=== PATIENT | male | born 1945 | race Caucasian/White ===

== ENCOUNTER → 2024-12-09 | Outpatient (CLI) | payer MEDICARE, SELFPAY ==
--- NOTE | 2024-12-09 18:50 | CT_ITS ---
PROCEDURE: ABDOMEN/PELVIS WITHOUT CONT 12/09/2024 REASON FOR EXAM: KIDNEY STONE TECHNIQUE: ABDOMEN/PELVIS WITHOUT CONT Noncontrast technique limits evaluation of the abdominal and pelvic viscera. Coronal and Sagittal reconstruction series were provided. One or more dose reduction techniques were used (e.g., Automated exposure control, adjustment of the mA and/or kV according to patient size, use of iterative reconstruction technique). RADIATION DOSE SUMMARY: CTDlvol: 21.05 mGy DLP: 1183.62 mGycm COMPARISON: None FINDINGS: Lung bases: Mild linear atelectasis and/or scarring at the lung bases. Coronary artery calcification. Liver: Diffuse fatty infiltration. Gallbladder: No evidence of gallstones. Spleen: Normal size. Pancreas: Normal size. No surrounding inflammation. Adrenals: Unremarkable Kidneys: Mild degree of bilateral nonspecific perinephric stranding. No renal calculus is seen. No evidence of hydronephrosis. Bladder: The urinary bladder is distended. Small umbilical hernia containing fat. The neck of the hernia measures mm. Bowel: Colonic diverticulosis without diverticulitis. Appendix: Unremarkable Lymph nodes: Unremarkable. Vasculature: Mild diffuse atherosclerotic calcifications are noted. Peritoneum / Retroperitoneum: Unremarkable Bones: Degenerative changes of the spine. CT/Abdomen/Pelvis without Cont IMPRESSION: No evidence of intrarenal calculi. No evidence of hydronephrosis. Fatty infiltration of the liver. Reading Location: [id number]
== END | disposition home or self-care (01) ==
PROVIDERS: PCP Family Medicine; Visit Provider Urology
DX: N40.1 Benign prostatic hyperplasia with lower urinary tract symptoms (principal)
CPT/HCPCS: 74176

== ENCOUNTER 2025-01-01 13:43 | Observation (INO) | payer MEDICARE, SELFPAY ==
[2025-01-01] VITALS (16 sets, daily range): BP systolic 135–156; BP diastolic 74–96; PULSE 88–107; RESP 16–18; TEMP 36.1–37.1; O2SAT 93–99; BMI 31.5
--- NOTE | 2025-01-01 10:19 | EKG12_ITS ---
Test Reason : PREOP Blood Pressure : */* mmHG Vent. Rate : 103 BPM Atrial Rate : 103 BPM P-R Int : 128 ms QRS Dur : 94 ms QT Int : 366 ms P-R-T Axes : 51 -58 52 degrees QTcB Int : 479 ms Sinus tachycardia Left axis deviation Nonspecific ST abnormality Abnormal ECG No previous ECGs available Confirmed by Sedrick Roach ([id number]), photography editor TOSHA WADSWORTH ([id number]) on 01/02/2025 8:32:31 AM Referred By: Ankit Reyes Confirmed By: Sedrick Roach
[2025-01-01] MEDS: Lactated Ringers 1,000 ML 15 ML IV (10:40)
--- NOTE | 2025-01-01 12:01 | PCM.PRE.AN2 ---
ASA Classification* ASA Classification ASA Classification: 3 Assessment & Plan Anesthesia* Anesthesia Assessment Anesthesia Assessment: Discussed sedation and/or anesthesia options, risks, benefits, and alternatives with patient/parents/legal guardian/POA. Questions invited. The patient/parents/legal guardian/POA seems to understand and agrees to proceed with anesthesia plan. Reviewed the physical assessment, medical history, allergy history and patient home medications list prior to surgery/procedure/anesthetic and documented any changes. Performed airway and anesthesia risk assessments. 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 When Was Last Pacemaker Check QUESTION #4 FULL TEXT: You/Your Family Experience fever (hyperthermia) with Anesthesia Last Oral Intake Last Oral intake: Last Oral Intake NPO since 00:00 01/01/25 10:27 Meds taken in AM with sips of water? 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 Female No 12/19/24 15:30 HX of Motion Sickness No 12/19/24 15:30 HX of N/V After Surgery No 12/19/24 15:30 Non-Smoker Yes 12/19/24 15:30 Duration of Surgery greater Yes 12/19/24 15:30 than 60 minutes Number of Risk Factors 2 12/19/24 15:30 PONV Score Moderate Risk 12/19/24 15:30 Height & Weight Height & Weight: Anesthesia: Height & Weight Height 5 ft 11 in 01/01/25 10:27 Weight: 102.512 kg 01/01/25 10:27 Body Mass Index (BMI) 31.5 01/01/25 10:27 Respiratory Assessment Respiratory Assessment - fuel system maintenance worker: Respiratory Tract Infection Hx - 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 Has anyone observed you stop No 12/19/24 15:30 breathing during sleep? STOP Results Negative 12/19/24 15:30 QUESTION #5 FULL TEXT : Do you snore loudly (louder than talking or can be heard through closed doors)? 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 Specify any problems Hx of Preganancy in last 3 N/A 12/19/24 15:30 Months Nurse Filling Out Transfusion JZOLLINGE 12/19/24 15:30 & Questions: Date: 12/19/24 12/19/24 15:30 Time: 15:31 12/19/24 15:30 Patient unable to answer at this time (ie. 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: /Reproductive Hx- fuel system maintenance worker Hx Now No 12/19/24 15:30 Gestational Age (in weeks): EDC: Hx Hx Para Hx Section SAB No 12/19/24 15:30 Active Medications Active Medications: Current Medications Generic Name Dose Route Start Last Admin Trade Name Brittany PRN Reason Stop Dose Admin Cefazolin Sodium 2 gm/ Sodium 110 mls @ 200 mls/hr 01/01/25 12:05 Chloride IV 01/01/25 12:37 INTRAOP ONE Lactated Ringer's 1,000 mls @ 15 mls/hr 01/01/25 10:15 01/01/25 10:40 IV 15 mls/hr .Q48H PATRICE Administration PFSH Medical History (Updated 12/19/24 @ 15:39 by Freda Ramos) Wears glasses Depression Anxiety Pulmonary embolism Prostate disease High cholesterol Injury of head and neck Non-smoker History of stress test Hypertension Home Medications ?Medication ?Instructions ?Recorded ?Last Taken ?Type aspirin 81 mg tablet,delayed 81 mg PO DAILY 12/19/24 12/25/24 History release (Adult Aspirin Regimen) coenzyme Q10 100 mg capsule (Co 100 mg PO DAILY 12/19/24 Unknown History Q-10) cranberry 500 mg capsule 500 mg PO DAILY 12/19/24 Unknown History lactobacillus combination no.4 3 3,000 mmu cells PO DAILY 12/19/24 Unknown History billion cell capsule (Probiotic) lisinopril 5 mg tablet 5 mg PO DAILY 12/19/24 12/31/24 History melatonin 3 mg capsule 3 mg PO QHS 12/19/24 12/31/24 History milk thistle 500 mg capsule 1,000 mg PO DAILY 12/19/24 Unknown History mirtazapine 45 mg tablet 45 mg PO DAILY 12/19/24 12/31/24 History olanzapine 2.5 mg tablet 2.5 mg PO DAILY 12/19/24 12/31/24 History omega-3 fatty acids 1,000 mg PO DAILY 12/19/24 Unknown History pyridoxine (vitamin B6) 50 mg 50 mg PO DAILY 12/19/24 Unknown History tablet red yeast rice 600 mg tablet 600 mg PO DAILY 12/19/24 Unknown History venlafaxine 150 mg 150 mg PO DAILY 12/19/24 12/31/24 History capsule,extended release 24 hr Allergy/AdvReac Type Severity Reaction Status Date / Time No Known Allergies Allergy Verified 01/01/25 10:24 Surgical History (Updated 12/19/24 @ 15:30 by Freda Ramos) Hx of colonoscopy Social History Smoking Status: Never smoker Review of Systems (Anesthesia) ROS Narrative System reviewed and no additional complaints, except as documented. Physical Exam Const alert and oriented x3 HEENT dentition normal Resp normal respiratory effort Cardio regular rate Neuro oriented x3 and moves all extremities
--- NOTE | 2025-01-01 12:15 | PROS_PTH ---
PATIENT: JORGE BAER LOC: [facility] U#:[id number] AGE/SX: 79/M ROOM: PR322 RE01/01/[address]: Dr. Ankit Reyes MD : [id number] BED: 1 DIS: 01/02/2025 SPEC #: [id number] RECD: 01/01/25 15:47 STATUS: MAGUI PEDRAZA #: [id number] ALFA: 01/01/25 12:[address]: Ankit Reyes DEPT: SURGICAL PATHOLOGY RECD BY: Lisa Parry ENTERED: 01/02/25 10:10 SP TYPE: TURP OTHR DR: Dr. Dami Fairchild MD Tissues: Prostate, NOS Procedures: Surgery Specimen Level IV HEADER OPERATION: CYSTOTURPOLY REPEAT TURP PRE-OP DIAGNOSIS: BPH with Obstruction TISSUE SUBMITTED: Prostate Chips MICROSCOPIC DIAGNOSIS A. Prostate, BPH with obstruction, transurethral resection: - Benign prostate tissue. MICROSCOPIC DESCRIPTION Slides are reviewed. GROSS DESCRIPTION A. Received in formalin labeled with the patient's name and date of . Designated as prostate tissue is 8.3g and 5.9 x 4.2 x 1.1 cm aggregate of irregular, montoya, rubbery and cauterized tissue fragments. Entirely submitted in 7 cassettes. NM 01/02/2025 CPT: 34724
--- NOTE | 2025-01-01 12:21 | PCM.HP.STD ---
HPI - General General Date of Service: 01/01/25 Chief Complaint: BPH with obstruction HPI Narrative JORGE BAER, is a 79 M who presents to my office with significant obstruction in the channel has been using self intermittent catheterization he did have a TURP at the [facility] but on cystoscopy he has a lot of blockage still left so I think that doing another TURP would hopefully open up the channel he may be able to empty better and may be able to stop self intermittent catheterization after the second TURP patient is agreeable with proceeding and will agree to proceed with a TURP. [facility] Medical History (Updated 12/19/24 @ 15:39 by Freda Ramos) Wears glasses Depression Anxiety Pulmonary embolism Prostate disease High cholesterol Injury of head and neck Non-smoker History of stress test Hypertension Home Medications ?Medication ?Instructions ?Recorded ?Last Taken ?Type aspirin 81 mg tablet,delayed 81 mg PO DAILY 12/19/24 12/25/24 History release (Adult Aspirin Regimen) coenzyme Q10 100 mg capsule (Co 100 mg PO DAILY 12/19/24 Unknown History Q-10) cranberry 500 mg capsule 500 mg PO DAILY 12/19/24 Unknown History lactobacillus combination no.4 3 3,000 mmu cells PO DAILY 12/19/24 Unknown History billion cell capsule (Probiotic) lisinopril 5 mg tablet 5 mg PO DAILY 12/19/24 12/31/24 History melatonin 3 mg capsule 3 mg PO QHS 12/19/24 12/31/24 History milk thistle 500 mg capsule 1,000 mg PO DAILY 12/19/24 Unknown History mirtazapine 45 mg tablet 45 mg PO DAILY 12/19/24 12/31/24 History olanzapine 2.5 mg tablet 2.5 mg PO DAILY 12/19/24 12/31/24 History omega-3 fatty acids 1,000 mg PO DAILY 12/19/24 Unknown History pyridoxine (vitamin B6) 50 mg 50 mg PO DAILY 12/19/24 Unknown History tablet red yeast rice 600 mg tablet 600 mg PO DAILY 12/19/24 Unknown History venlafaxine 150 mg 150 mg PO DAILY 12/19/24 12/31/24 History capsule,extended release 24 hr Allergy/AdvReac Type Severity Reaction Status Date / Time No Known Allergies Allergy Verified 01/01/25 10:24 Surgical History (Updated 12/19/24 @ 15:30 by Freda Ramos) Hx of colonoscopy Social History Smoking Status: Never smoker Vital Signs Vital Signs Vital Signs: 01/01/25 10:27 01/01/25 10:27 01/01/25 12:02 Temperature 98.6 F 98.6 F Temperature Source Temporal Pulse Rate 103 H 103 H Respiratory Rate 16 16 Respiratory Pattern Normal Blood Pressure 146/92 H 146/92 H Blood Pressure Mean 110 Blood Pressure Source Monitor Blood Pressure Position Semi-Fowlers Blood Pressure Location Left Arm Pulse Ox 99 99 Oxygen Delivery Method Room Air Room Air Weight Weight: 102.512 kg Body Mass Index (BMI) 31.5
--- NOTE | 2025-01-01 13:46 | DCINST_ITS ---
Discharge Instructions DC O2, CPAP, BIPAP needs Home O2 Discharge instructions: No Dressing / Incision Discharge Activity: Return to Normal Activity Dressing / Incision Call your doctor if your incision/area has: Sudden Increased Bleeding Call your doctor if you observe: Fever of 101 or Higher Suture Line Care: Avoid Pulling/Pushing and Avoid Pinching/Bending Follow Up Care Please Follow Up With: Ankit Reyes MD When: 2 weeks Test Results: Test results from this visit will be discussed in further detail at your follow- up appointment, if applicable. Discharge Plan Admission Primary Reason for Your Visit: turp Attending Provider: Ankit Reyes Primary Care Provider: Dami Fairchild Instructions Patient Instructions: TURP, TUR Home Recovery, [facility] Hospital Recovery Print Language: Nepalese Discharge Orders/Prescriptions Prescriptions: New ciprofloxacin HCl [Cipro] 500 mg tablet 500 mg PO BID Qty: 6 0RF Continued coenzyme Q10 [Co Q-10] 100 mg capsule 100 mg PO DAILY cranberry 500 mg capsule 500 mg PO DAILY Rx Instructions: administer with a meal lisinopril 5 mg tablet 5 mg PO DAILY melatonin 3 mg capsule 3 mg PO QHS milk thistle 500 mg capsule 1,000 mg PO DAILY Rx Instructions: give with meal/snack mirtazapine 45 mg tablet 45 mg PO DAILY olanzapine 2.5 mg tablet 2.5 mg PO DAILY omega-3 fatty acids Capsule 1,000 mg PO DAILY Probiotic 3 billion cell capsule 3,000 mmu cells PO DAILY Rx Instructions: administer with a meal red yeast rice 600 mg tablet 600 mg PO DAILY Rx Instructions: give with meal/snack venlafaxine 150 mg capsule,extended release 24hr 150 mg PO DAILY pyridoxine (vitamin B6) 50 mg tablet 50 mg PO DAILY Held aspirin [Adult Aspirin Regimen] 81 mg tablet,delayed release (DR/EC) 81 mg PO DAILY Hold Instructions: Resume on 01/15/25. Referrals / Follow Up: Dami Fairchild MD [Primary Care Provider] - Disposition Disposition (needs filled in before D/C Order can be placed): Home, Self Care
--- NOTE | 2025-01-01 13:47 | OP.PCM_ITS ---
Operative Report (Standard) Operative Information Date of Procedure: 01/01/25 Pre-Operative Diagnosis: BPH with obstruction Post-Operative Diagnosis: Same Surgery/Procedure Performed: Transurethral resection of the prostate grocery store courtesy clerk: No Type of Anesthesia: General RN Documented Start/Stop Times: Operation Date: 01/01/25 12:15 Case Time Into Pre-Op 01/01/25 10:13 Anesthesia Start 01/01/25 12:54 Into Room 01/01/25 12:54 Out of Pre-Op 01/01/25 12:54 Procedure Start 01/01/25 13:08 Procedure End 01/01/25 13:37 Anesthesia End 01/01/25 13:46 Out of Room 01/01/25 13:46 Procedure Start Time: 13:08 Procedure Stop Time: 13:49 Select all DRAINS/GRAFTS/IMPLANTS that apply: Drains Drain details: 22 Congolese three-way catheter Estimated Blood Loss: Minimal Specimen collected: No Description of surgery: This is a 79-year-old male he had a TURP at the [facility] and still was having difficulty with urination and having to use a self intermittent catheterization on cystoscopy was found to have significant blockage still so I offered him a second resection to resect all the tissue that was not resected on the first resection hopefully this would open up all the channel so that he can empty bladder better. Patient was taken back to the operative room after smooth duction of anesthesia he was placed in dorsal lithotomy position. We did the bladder with a 26 Congolese continuous-flow resectoscope identified the verumontanum and identified the obstructing tissue identified the right left ureteral orifice I then started resecting at the bladder neck back to the verumontanum I then resected the right lobe of the prostate left lobe provide prostate except that the anterior tissue and opened up a nice wide open channel sphincter was intact verumontanum was intact flow test flow test was wide open I then put a 22 Congolese catheter in the bladder with continuous irrigation we did cauterize obtain hemostasis patient w as taken back to the PACU in stable condition will stay overnight for irrigation. Surgical Findings: Resected obstructing tissue from the prostate Complications Complications: No Admit VTE Documentation VTE Present on Admission: No VTE Mechan Device Prophylaxis: SCD's VTE Pharm Prophylaxis ordered?: No
--- NOTE | 2025-01-01 13:51 | PCM.POST.ANE ---
Anesthesia: Postop Eval I Current Vital Signs Temperature: 97.3 F Pulse Rate: 96 Blood Pressure: 156/95 Respiratory Rate: 16 Pulse Ox: 97 Oxygen Delivery Method: Room Air Assessment Airway patent: Yes Spontaneous unlabored respirations: Yes Mental status: Asleep nausea: No Vomiting: No Anesthesia Complication: No Fluid Hydration Crystalloid volume administer (ml): 600 Total IV fluid infused: 600 Progress Note Anesthesia document: Postop Eval 1 completed: Yes
--- NOTE | 2025-01-01 16:07 | POSTOPAN2_ITS ---
Anesthesia Postop Eval I Sum Postop Eval Completion status Anesthesia document: Postop Eval 1 completed: Yes Anesthesia Postop Eval I Summary Anesthesia Postop Eval I Summary: Anesthesia Postop Eval I: Assessment Summary Airway patent Yes 01/01/25 13:52 MORTGAGE FIELD INSPECTOR.CYNTHIAOBNina Spontaneous unlabored Yes 01/01/25 13:52 MORTGAGE FIELD INSPECTOR.ANNE respirations Mental status Asleep 01/01/25 13:52 MORTGAGE FIELD INSPECTOR.CYNTHIAOBNina nausea No 01/01/25 13:52 MORTGAGE FIELD INSPECTOR.CYNTHIAOBNina Vomiting No 01/01/25 13:52 MORTGAGE FIELD INSPECTOR.ANNE Anesthesia Postop Eval I: Fluid Summary Crystalloid volume administer 600 01/01/25 13:52 MORTGAGE FIELD INSPECTOR.ANNE (ml) Colloids volume administered ( ml) Blood Product volume administered (ml) Total IV fluid infused 600 01/01/25 13:52 MORTGAGE FIELD INSPECTOR.ANNE Anesthesia Postop Eval I: Summary Notes Anesthesia Complication No 01/01/25 13:52 MORTGAGE FIELD INSPECTOR.ANNE Anesthesia Complication Comment: Post-operative progress note Anesthesia: Postop Eval II Evaluation Mental status: Awake and Calm Pain Level: 1 nausea: No Vomiting: No Complications Anesthesia Complication: No
--- NOTE | 2025-01-01 16:07 | PCM.POSTANE2 ---
Anesthesia Postop Eval I Sum Postop Eval Completion status Anesthesia document: Postop Eval 1 completed: Yes Anesthesia Postop Eval I Summary Anesthesia Postop Eval I Summary: Anesthesia Postop Eval I: Assessment Summary Airway patent Yes 01/01/25 13:52 BORING MACHINE OPERATOR DOUBLE END.CYNTHIAOBNina Spontaneous unlabored Yes 01/01/25 13:52 BORING MACHINE OPERATOR DOUBLE END.ANNE respirations Mental status Asleep 01/01/25 13:52 BORING MACHINE OPERATOR DOUBLE END.CYNTHIAOBNina nausea No 01/01/25 13:52 BORING MACHINE OPERATOR DOUBLE END.CYNTHIAOBNina Vomiting No 01/01/25 13:52 BORING MACHINE OPERATOR DOUBLE END.ANNE Anesthesia Postop Eval I: Fluid Summary Crystalloid volume administer 600 01/01/25 13:52 BORING MACHINE OPERATOR DOUBLE END.ANNE (ml) Colloids volume administered ( ml) Blood Product volume administered (ml) Total IV fluid infused 600 01/01/25 13:52 BORING MACHINE OPERATOR DOUBLE END.ANNE Anesthesia Postop Eval I: Summary Notes Anesthesia Complication No 01/01/25 13:52 BORING MACHINE OPERATOR DOUBLE END.ANNE Anesthesia Complication Comment: Post-operative progress note Anesthesia: Postop Eval II Evaluation Mental status: Awake and Calm Pain Level: 1 nausea: No Vomiting: No Complications Anesthesia Complication: No
[2025-01-01] MEDS: 0.9% Saline Lock 10 ML Syringe IV (21:49)
[2025-01-01] MEDS: MELATONIN 3 MG TABLET PO (21:49)
[2025-01-01] MEDS: 0.9% Normal Saline (250mL Bag) 250 ML 15 ML IV (21:50)
[2025-01-02 03:15] VITALS: BP 142/76; PULSE 92; RESP 16; TEMP 37; O2SAT 95
[2025-01-02 06:27] LABS: Hematocrit 44.6 % (40-54); Hemoglobin 15.1 g/dL (13.0-16.5); Immature Granulocytes Count 0.050 X10^3/uL (0.0-0.0); Mean Corp Hgb Conc 33.9 g/dL (32-36); Mean Corpuscular Volume 87.6 fL (80-94); Mean Platelet Vol. 10.0 fl (6.2-12.0); NRBC Flagged by Analyzer 0 % (0-5); Platelet Count 228 K/mm3 (150-450); RBC Distribution Width CV 13.6 % (11.6-14.6); RBC Distribution Width SD 43.8 fl (35.1-43.9); Red Blood Count 5.09 M/mm3 (4.6-6.2); White Blood Count 15.8 K/mm3 (4.4-11.0)
[2025-01-02 06:57] VITALS: BP 158/72; PULSE 98; RESP 16; TEMP 36.5; O2SAT 95
[2025-01-02 06:59] LABS: Anion Gap 12 (5-15); BUN 13 mg/dL (4-19); BUN/Creat Ratio 10.9 RATIO (10-20); Calcium,Total 9.0 mg/dL (7.6-11.0); Carbon Dioxide 22.1 mmol/L (21.0-32.0); Chloride 106 mmol/L (98-108); Estimated Creatinine Clearance 65.01 ml/min (50-250); Glucose 129 mg/dL (70-99); Potassium 4.6 mmol/L (3.3-5.1)
--- NOTE | 2025-01-02 07:33 | DS.PCM_ITS ---
Providers Date of Admission: 01/01/25 Date of Discharge: 01/02/25 Primary Care Physician: Dr. Dami Fairchild MD Reason For Visit: REPEAT TURP Medications at Discharge Home Medications aspirin 81 mg tablet,delayed release (Adult Aspirin Regimen) 81 mg PO DAILY 12/19/24 Held on 01/01/25. Instructions: Resume on 01/15/25. coenzyme Q10 100 mg capsule (Co Q-10) 100 mg PO DAILY 12/19/24 cranberry 500 mg capsule 500 mg PO DAILY 12/19/24 lactobacillus combination no.4 3 billion cell capsule (Probiotic) 3,000 mmu cells PO DAILY 12/19/24 lisinopril 5 mg tablet 5 mg PO DAILY 12/19/24 melatonin 3 mg capsule 3 mg PO QHS 12/19/24 milk thistle 500 mg capsule 1,000 mg PO DAILY 12/19/24 mirtazapine 45 mg tablet 45 mg PO DAILY 12/19/24 olanzapine 2.5 mg tablet 2.5 mg PO DAILY 12/19/24 omega-3 fatty acids 1,000 mg PO DAILY 12/19/24 pyridoxine (vitamin B6) 50 mg tablet 50 mg PO DAILY 12/19/24 red yeast rice 600 mg tablet 600 mg PO DAILY 12/19/24 venlafaxine 150 mg capsule,extended release 24 hr 150 mg PO DAILY 12/19/24 ciprofloxacin HCl 500 mg tablet (Cipro) 500 mg PO BID #6 tabs 01/01/25 Hospital Course Operations TURP Weight / BMI Weight Weight: 102.512 kg Body Mass Index (BMI) 31.5 ABG / Lab / Microbiology Data 01/02/25 06:12 01/02/25 06:12 Laboratory: Laboratory Results - last 24 hr 01/02/25 06:12: WBC 15.8 H, RBC 5.09, Hgb 15.1, Hct 44.6, MCV 87.6, MCH 29.7, MCHC 33.9, RDW Std Deviation 43.8, RDW Coeff of Jairon 13.6, Plt Count 228, MPV 10.0, Immature Gran % (Auto) 0.300, Neut % (Auto) 80.0 H, Lymph % (Auto) 13.5 L, Wilkes % (Auto) 6.0, Eos % (Auto) 0.1, Baso % (Auto) 0.1, Absolute Neuts (auto) 12.7 H, Absolute Lymphs (auto) 2.14, Nucleated RBC % 0, Sodium 140, Potassium 4.6, Chloride 106, Carbon Dioxide 22.1, Anion Gap 12, BUN 13, Creatinine 1.16, Estim Creat Clear Calc 65.01, Est GFR (MDRD) Non-Af 65, BUN/Creatinine Ratio 10.9, Glucose 129 H, Calcium 9.0 D/C Instructions Call your doctor if your incision/area has: Sudden Increased Bleeding Call your doctor if you observe: Fever of 101 or Higher Suture Line Care: Avoid Pulling/Pushing and Avoid Pinching/Bending DC O2, CPAP, BIPAP Needs Home O2 Discharge instructions: No Please Follow Up With: Ankit Reyes MD When: 2 weeks Meaningful Use Info Meaningful Use Meaningful Use Diagnoses (Choose all that apply): None applicable Discharge Plan Admission Admit Date/Time: 01/01/25 13:43 Primary Reason for Your Visit: turp Attending Provider: Ankit Reyes Primary Care Provider: Dami Fairchild Instructions Patient Instructions: KYLER CH[facility]VEZ Home Recovery, [facility] Hospital Recovery Discharge Orders/Prescriptions Prescriptions: New ciprofloxacin HCl [Cipro] 500 mg tablet 500 mg PO BID Qty: 6 0RF Continued coenzyme Q10 [Co Q-10] 100 mg capsule 100 mg PO DAILY cranberry 500 mg capsule 500 mg PO DAILY Rx Instructions: administer with a meal lisinopril 5 mg tablet 5 mg PO DAILY melatonin 3 mg capsule 3 mg PO QHS milk thistle 500 mg capsule 1,000 mg PO DAILY Rx Instructions: give with meal/snack mirtazapine 45 mg tablet 45 mg PO DAILY olanzapine 2.5 mg tablet 2.5 mg PO DAILY omega-3 fatty acids Capsule 1,000 mg PO DAILY Probiotic 3 billion cell capsule 3,000 mmu cells PO DAILY Rx Instructions: administer with a meal red yeast rice 600 mg tablet 600 mg PO DAILY Rx Instructions: give with meal/snack venlafaxine 150 mg capsule,extended release 24hr 150 mg PO DAILY pyridoxine (vitamin B6) 50 mg tablet 50 mg PO DAILY Held aspirin [Adult Aspirin Regimen] 81 mg tablet,delayed release (DR/EC) 81 mg PO DAILY Hold Instructions: Resume on 01/15/25. Referrals / Follow Up: Dami Fairchild MD [Primary Care Provider] -
[2025-01-02 07:40] VITALS: BP 151/110; PULSE 93; RESP 16; TEMP 36.6; O2SAT 93
[2025-01-02] MEDS: 0.9% Saline Lock 10 ML Syringe IV (10:30)
--- NOTE | 2025-01-02 12:05 | PHA.DC.MC.R ---
Pharmacy [facility] Counseling Pharmacy Service has performed discharge medication reconciliation and counseling for this patient. 1. CIPROFLOXACIN 500MG PO BID X 3 DAYS 2. HOLD ASPIRIN UNTIL 01/15/25 The patient's discharge medication list was reviewed for discrepancies and discrepancies were resolved. The patient was counseled on the following discharge medications and changes in medications for homegoing were reviewed. The Reason for Use, instructions for use, and potential side effects were reviewed for all new medications. The patient's questions regarding all of their medications were answered. The patient was able to verbally demonstrate an understanding of their discharge medications. Medications at Discharge Home Medications aspirin 81 mg tablet,delayed release (Adult Aspirin Regimen) 81 mg PO DAILY 12/19/24 Held on 01/01/25. Instructions: Resume on 01/15/25. coenzyme Q10 100 mg capsule (Co Q-10) 100 mg PO DAILY 12/19/24 cranberry 500 mg capsule 500 mg PO DAILY 12/19/24 lactobacillus combination no.4 3 billion cell capsule (Probiotic) 3,000 mmu cells PO DAILY 12/19/24 lisinopril 5 mg tablet 5 mg PO DAILY 12/19/24 melatonin 3 mg capsule 3 mg PO QHS 12/19/24 milk thistle 500 mg capsule 1,000 mg PO DAILY 12/19/24 mirtazapine 45 mg tablet 45 mg PO DAILY 12/19/24 olanzapine 2.5 mg tablet 2.5 mg PO DAILY 12/19/24 omega-3 fatty acids 1,000 mg PO DAILY 12/19/24 pyridoxine (vitamin B6) 50 mg tablet 50 mg PO DAILY 12/19/24 red yeast rice 600 mg tablet 600 mg PO DAILY 12/19/24 venlafaxine 150 mg capsule,extended release 24 hr 150 mg PO DAILY 12/19/24 ciprofloxacin HCl 500 mg tablet (Cipro) 500 mg PO BID #6 tabs 01/01/25
[2025-01-02 12:14] VITALS: BP 159/95; PULSE 86; RESP 16; TEMP 36.6; O2SAT 95
== END 2025-01-02 13:57 | disposition home or self-care (01) ==
LOC: SDC 13:58 → MS3 13:58
PROVIDERS: Admitting Provider Urology; PCP Family Medicine; Referring Provider Urology; Visit Provider Urology
PROC: (CPT 52630; principal; 2025-01-01 12:00)
DX: N40.1 Benign prostatic hyperplasia with lower urinary tract symptoms (principal); I10 Essential (primary) hypertension; Z79.82 Long term (current) use of aspirin; Z86.711 Personal history of pulmonary embolism; E78.00 Pure hypercholesterolemia, unspecified; N13.8 Other obstructive and reflux uropathy; Z79.899 Other long term (current) drug therapy
CPT/HCPCS: 52630; 36415; 80048; 85025; 88305; 93005; 96365; 96366; 99221; A4216; G0378; J0744; J2405